=== PATIENT | male | born 1970 | race Caucasian/White ===

== ENCOUNTER → 2019-12-08 | Outpatient (CLI) | payer OTHER ==
[~2019-12-08] MED LIST: ATOR20TA PO; CETI10TA74 PO; LOSA1TAB19 PO; MULT1TAB49 PO; OXYC-325 PO
== END ==
LOC: LAB 12:44
PROVIDERS: ATTEND Surgery
DX: Z01.812 Encounter for preprocedural laboratory examination (principal); Z20.828 Contact with and (suspected) exposure to other viral communicable diseases; K81.1 Chronic cholecystitis
CPT/HCPCS: U0003-CS

== ENCOUNTER 2019-12-12 10:54 | Day surgery (SDC) | payer OTHER ==
[~2019-12-12] VITALS: Ht 175.3 cm; Wt 106.5 kg
[~2019-12-12 10:54] MED LIST changes: +ACETAMINOPHEN 500 MG TABLET PO PRN; +BUPIVACAINE-EPI 0.25%-1:200000 MPF 30 ML VIAL. INJ ONE; +HYDROmorphone 2 MG/ML VIAL IV PRN; +INDOCYANINE GREEN 2.5 MG in TOTAL VOLUME SYRINGE 1 ML IVP ONE; +IV RINGERS,LACTATED 1000ML 1,000 ML IV SCH; +MORPHINE SULFATE 2 MG/ML VIAL. IV PRN; +ONDANSETRON PF 4 MG/2 ML VIAL. IV PRN; -OXYC-325 PO; +PROCHLORPERAZINE 10 MG/2 ML VIAL. IV PRN; +fentaNYL PF VIAL 100 MCG/2 ML VIAL IV PRN
[2019-12-12] MEDS ORDERED: ceFAZolin 2GM PREMIX 2 GM/50 ML BAG IV ONE (12:00)
[2019-12-12] MEDS ORDERED: SURGICEL HEMOSTAT 4X8 EACH. ONE (12:04)
[2019-12-12] MEDS ORDERED: SUCCINYLCHOLINE 200 MG/10 ML VIAL. ONE (12:37)
[2019-12-12] MEDS ORDERED: ROCURONIUM 50 MG/5 ML VIAL. ONE (12:37)
[2019-12-12] MEDS ORDERED: fentaNYL PF VIAL 100 MCG/2 ML VIAL ONE ×3 (12:38→14:47)
[2019-12-12] MEDS ORDERED: GLYCOPYRROLATE 1 MG/5 ML VIAL. ONE (12:51)
[2019-12-12] MEDS ORDERED: ePHEDrine PF IN SALINE 50 MG/10 ML SYRINGE. IV ONE (13:10)
[2019-12-12] MEDS ORDERED: ONDANSETRON PF 4 MG/2 ML VIAL. ONE (13:10)
[2019-12-12] MEDS ORDERED: SEVOFLURANE 61 TO 120 MINUTES. IH ONE (13:10)
[2019-12-12] MEDS ORDERED: DEXAMETHASONE SOD PHOS 20 MG/5 ML VIAL. ONE (13:10)
[2019-12-12] MEDS ORDERED: LIDOCAINE 2% PF 5 ML VIAL. ONE (13:10)
[2019-12-12] MEDS ORDERED: PROPOFOL 10 MG/ML (20ML) VIAL. IV ONE (13:10)
[2019-12-12] MEDS ORDERED: NEOSTIGMINE METHYLSULFATE 5 MG/5 ML SYRINGE. ONE (13:11)
[2019-12-12] MEDS ORDERED: ESMOLOL 100 MG/10 ML VIAL. IVP ONE (13:28)
[2019-12-12] MEDS ORDERED: FAMOTIDINE 20 MG/2 ML VIAL ONE (13:48)
--- NOTE | 2019-12-12 14:06 | PDOC4 ---
Operative Note Operative Note Date: 1012 at 1402 Preoperative diagnosis: Chronic cholecystitis cholelithiasis Postoperative diagnosis: Same Procedure: The robotic assisted laparoscopic cholecystectomy with intraoperative cholangiogram Surgeon: Hong Specimen: Gallbladder Dictation: Patient is a 49-year-old gentleman with right upper quadrant abdominal pain ultrasound showing gallstone within the neck of the gallbladder. Procedure of robotic assisted laparoscopic cholecystectomy with intraoperative cholangiograms was explained to the patient detail was benefits were also discussed including bleeding infection injury to intra-abdominal contents possible necessitating further or open operations alternatives to this procedure also discussed with the patient who seemed to understand and gave both verbal and written consent to have the procedure performed. Patient was taken to the operating room placed in the supine position general anesthesia was initiated once patient was sleeping intubated his abdomen was prepped and draped usual sterile fashion using ChloraPrep. An area just below the umbilicus was injected with quarter percent Marcaine with epinephrine incision was made 11 blade scalpel and a varies needle was placed within the abdomen creating pneumoperitoneum once this was complete 12 mm port was placed and the da Tone 12 mm M was placed within the abdomen which was inspected no other abnormalities were noted 8 mm da Tone port was placed in the right midabdomen and a millimeter da Tone port was placed in the left midabdomen and a 5 mm port was placed in the left upper quadrant. The robot was brought in and docked all port sites surgeon went to the robotic console using a grasper and hook cautery the gallbladder is grasped retracted anteriorly and through the 5 mm port a 5 mm grasper was used to grasp the dome of the gallbladder and retracted cephalad adhesions from the gallbladder to the omentum were taken down with electrocautery down to the triangle. The infundibular gallbladder is grasped retracted laterally surgeon used the hook electrocautery to bluntly dissect out the cystic duct and cystic artery the cystic duct was visualized under the ICG camera no obstructions were noted free flow of the ICG into the common bile duct with no evidence of obstruction. The cystic duct was then clipped with hemo- lock clips proximally distally and transected with Endo Lucio scissors. The cystic artery was also clipped with a hemo-lock clipped and transected with electrocautery the gallbladder is taken off the liver with hook electrocautery. Once this was complete surgeon went back to the operative field scrubbed in and the robot was undocked from all port sites a Endobag was used to collect the gallbladder removed from the umbilicus. The right upper quadrant was irrigated and suctioned dry hemostasis to be appropriate at that point the pneumoperiton eum was reduced all ports removed the fascial defect at the umbilicus was closed with [id number] 0 Vicryl suture and the skin was reapproximated all port sites for subcuticular Monocryl Mastisol Steri-Strips and island dressings were applied. Patient was awakened and extubated in the operating room taken to recovery in stable condition all sponge instrument needle counts listed as correct estimated blood loss 20 mL. FENG AVILA MD Dec 12, 2019 14:06
--- NOTE | 2019-12-12 14:08 | DISCH ---
DISCHARGE INSTRUCTIONS Condition on Discharge Condition on Discharge: Stable Activity After Discharge Activity Instructions for Disc: Avoid exertion Other activity instructions: No lifting more than 20 pounds for 2 weeks Diet after Discharge Diet after Discharge: Low Fat Wound Incision Care Other wound/incision instructi: May shower in 24 hours Contacting the after DC Call your doctor for: If your condition worsens Follow-Up Follow up with: Dr. Avila in 2 weeks FENG AVILA MD Dec 12, 2019 14:08
[2019-12-12] MEDS ORDERED: oxyCODONE/APAP 5/325 1 TAB TABLET PO ONE ×2 (14:45)
[2019-12-12] MEDS ORDERED: OXYC-325 PO (14:51)
[2019-12-12] MEDS: fentaNYL PF VIAL 100 MCG/2 ML VIAL IV PRN ×2 (15:34→16:14)
[2019-12-12 16:45] VITALS: BP 137/56
--- NOTE | 2019-12-14 12:07 | PATHOLOGY ---
[facility] Accession Number: [id number] . 01 Material submitted: . gallbladder - GALLBLADDER . 01 Clinical history: . CHRONIC CHOLECYSTITIS . 02 Diagnosis: Gallbladder, excision: - Chronic cholecystitis; negative for malignancy. - Lithiasis. (MARYAK:inderjit; 12/13/2019) [facility] 12/13/2019 1545 Local . 02 Electronically signed: . Abundio Rodriguez MD, Pathologist NPI- [id number] . 01 Gross description: . The specimen is received in formalin, labeled "Hellen French, gallbladder". Received is an intact gallbladder measuring 8.6 x 3.7 x 3.2 cm in greatest dimensions displaying a adipose covered serosal surface. Opening the specimen reveals a velvety, bile-stained mucosa with a gallbladder wall thickness of 0.1 cm. A single black, granular calculus is present, and no masses or lesions are noted grossly. [employer] sections, to include the proximal margin, are submitted in cassette A1. (CAA; 12/12/2019) QA/[facility] 12/12/2019 1756 Local . 02 Pathologist provided ICD-10: K80.10 . 02 CPT . 294182 Specimen Comment: A courtesy copy of this report has been sent to [phone], [phone] Specimen Comment: [id number] Specimen Comment: Report sent to / DR BOB Performed at: 01 [facility] [address], [place] [id number] MD Tommie Anaya MD Phone: [phone] Performed at: 02 [facility] [address], [place] [id number] MD Jose Aviles MD Phone: [phone]
== END 2019-12-12 17:16 | disposition home or self-care (01) ==
LOC: SURG 10:54 → UNDOADMOB 11:00 → 4 SOUTHEST 11:00 → EDUNIT# 12:30 → SURG 17:16
PROVIDERS: ATTEND Surgery
DX: K80.10 Calculus of gallbladder with chronic cholecystitis without obstruction (principal); I10 Essential (primary) hypertension; E78.00 Pure hypercholesterolemia, unspecified; Z79.899 Other long term (current) drug therapy; Z98.890 Other specified postprocedural states
CPT/HCPCS: 47563; A7015; J0330; J0690; J1100; J2405; J2704; J2710; J3010; J3490; J7030; J7120; S2900; 88304